=== PATIENT | male | born 1955 | race Caucasian/White ===

== ENCOUNTER 2018-09-17 11:42 | Observation (INO) | payer OTHER ==
[~2018-09-17] VITALS: Ht 154.9 cm; Wt 110.2 kg
--- NOTE | 2018-09-17 12:14 | PHYS DOC ---
Past Medical History Past Medical History: Diabetes-Type II, High Cholesterol, Hypertension Past Surgical History: Cholecystectomy, Other Additional Past Surgical Histo: BILAT ACL REPAIRS Additional Information: QUIT SMOKING AUGUST 23 Alcohol Use: None Drug Use: None Adult General Chief Complaint Chief Complaint: SHORTNESS OF BREATH HPI HPI Patient is a 63 year old male that presents with shortness of breath, chest pain that started at 10 PM last night. Describes the chest pain as pressure and states it went away last night when sleeping. He states that he is continued to be short of breath today. His states that he has been inactive over the last month as he has pending knee surgery and has been immobile. He also states that he has been nauseous and vomited 3 times last night. He states this happened after the shortness breath and chest pain. Denies any pain currently. Does have a history of diabetes, hypertension, and high cholesterol. Also has a family history of cardiac issues. Review of Systems Review of Systems Constitutional: Denies fever or chills [] Eyes: Denies change in visual acuity, redness, or eye pain [] HENT: Denies nasal congestion or sore throat [] Respiratory: Denies cough but reports shortness of breath [] Cardiovascular: Reports chest pressure last night. GI: Reports nausea, and vomiting. Denies abdominal pain, bloody stools or diarrhea [] : Denies dysuria or hematuria [] Musculoskeletal: Denies back pain or joint pain [] Integument: Denies rash or skin lesions [] Neurologic: Denies headache, focal weakness or sensory changes [] Endocrine: Denies polyuria or polydipsia [] Complete systems were reviewed and found to be within normal limits, except as documented in this note. Current Medications Current Medications Current Medications Medications (Trade) Dose Ordered Sig/[facility] Start Time Stop Time Status Last Admin Dose Admin Aspirin (Children'S Aspirin) 324 mg 1X ONCE 09/17/18 12:45 09/17/18 12:46 DC 09/17/18 13:11 324 MG Allergies Allergies Allergies Coded Allergies Type Severity Reaction Last Updated Verified No Known Drug Allergies 09/17/18 No Physical Exam Physical Exam Constitutional: Well developed, well nourished, no acute distress, non-toxic appearance. [] HENT: Normocephalic, atraumatic, bilateral external ears normal, oropharynx moist, no oral exudates, nose normal. [] Eyes: PERRLA, EOMI, conjunctiva normal, no discharge. [] Neck: Normal range of motion, no tenderness, supple, no stridor. [] Cardiovascular:Heart rate regular rhythm, no murmur [] Lungs & Thorax: Bilateral breath sounds clear to auscultation [] Abdomen: Bowel sounds normal, soft, no tenderness, no masses, no pulsatile masses. [] Skin: Warm, dry, no erythema, no rash. [] Back: No tenderness, no CVA tenderness. [] Extremities: No tenderness, no cyanosis, no clubbing, ROM intact, no edema. [] Neurologic: Alert and oriented X 3, normal motor function, normal sensory function, no focal deficits noted. [] Psychologic: Affect normal, judgement normal, mood normal. [] Current Patient Data Vital Signs Vital Signs Date Time Temp Pulse Resp B/P (MAP) Pulse Ox O2 Delivery O2 Flow Rate FiO2 09/17/18 12:45 76 22 152/94 (113) 98 Room Air 09/17/18 12:01 97.7 97.7 Lab Values Laboratory Tests Test 09/17/18 12:00 White Blood Count 9.2 x10^3/uL (4.0-11.0) Red Blood Count 4.87 x10^6/uL (4.30-5.70) Hemoglobin 15.2 g/dL (13.0-17.5) Hematocrit 43.7 % (39.0-53.0) Mean Corpuscular Volume 90 fL (79-100) Mean Corpuscular Hemoglobin 31 pg (25-35) Mean Corpuscular Hemoglobin Concent 35 g/dL (31-37) Red Cell Distribution Width 13.2 % (11.5-14.5) Platelet Count 175 x10^3/uL (140-400) Neutrophils (%) (Auto) 82 % (31-73) H Lymphocytes (%) (Auto) 14 % (24-48) L Monocytes (%) (Auto) 3 % (0-9) Eosinophils (%) (Auto) 0 % (0-3) Basophils (%) (Auto) 1 % (0-3) Neutrophils # (Auto) 7.5 x10^3/uL (1.8-7.7) Lymphocytes # (Auto) 1.3 x10^3/uL (1.0-4.8) Monocytes # (Auto) 0.3 x10^3/uL (0.0-1.1) Eosinophils # (Auto) 0.0 x10^3/uL (0.0-0.7) Basophils # (Auto) 0.1 x10^3/uL (0.0-0.2) Prothrombin Time 13.0 SEC (11.7-14.0) Prothrombin Time INR 1.0 (0.8-1.1) PTT 27 SEC (24-38) D-Dimer (Yelena) 0.43 ug/mlFEU (0.00-0.50) Sodium Level 140 mmol/L (136-145) Potassium Level 4.1 mmol/L (3.5-5.1) Chloride Level 102 mmol/L (98-107) Carbon Dioxide Level 25 mmol/L (21-32) Anion Gap 13 (6-14) Blood Urea Nitrogen 17 mg/dL (8-26) Creatinine 0.9 mg/dL (0.7-1.3) Estimated GFR (Cockcroft-Gault) 85.8 BUN/Creatinine Ratio 19 (6-20) Glucose Level 177 mg/dL (70-99) H Calcium Level 9.4 mg/dL (8.5-10.1) Total Bilirubin 0.8 mg/dL (0.2-1.0) Aspartate Amino Transferase (AST) 18 U/L (15-37) Alanine Aminotransferase (ALT) 35 U/L (16-63) Alkaline Phosphatase 60 U/L (46-116) Troponin I Quantitative < 0.017 ng/mL (0.000-0.055) HG-Orp-W-Type Natriuretic Peptide 136 pg/mL (0-124) H Total Protein 7.0 g/dL (6.4-8.2) Albumin 3.8 g/dL (3.4-5.0) Albumin/Globulin Ratio 1.2 (1.0-1.7) Laboratory Tests 09/17/18 12:00 Laboratory Tests 09/17/18 12:00 EKG EKG EKG interpreted by Dr. Mcconnell NO STEMI, Sinus rate of 81.[] Radiology/Procedures Radiology/Procedures [] Course & Med Decision Making Course & Med Decision Making Pertinent Labs and Imaging studies reviewed. (See chart for details) Will get EKG, labs, and chest x-ray. Will evaluate for PE via D-dimer. Imaging, EKG, and Labs are unremarkable but HEART score is 5. Will admit to Dr. Velasquez ([id number]) for further workup. Jarod Disclaimer Jarod Disclaimer This electronic medical record was generated, in whole or in part, using a voice recognition dictation system. Departure Departure Impression: Primary Impression: Chest pain Additional Impression: Shortness of breath at rest Disposition: ADMITTED INPATIENT Admitting Physician: CÉSAR Condition: STABLE Referrals: COLT SANTIAGO MD (PCP) The HEART Score for CP Pts HEART Score for Chest Pain: HEART Score for Chest Pain Response (Comments) Value History Highly Suspicious 2 ECG Normal 0 Age >45 - < 65 1 Risk Factors >3 Risk Factors or Hx CAD 2 Troponin < Normal Limit 0 Total 5 Risk Factors: Risk Factors: DM, Current or recent (<one month) smoker, HTN, HLP, family history of CAD, obesity. Risk Scores: Score 0 - 3: 2.5% MACE over next 6 weeks - Discharge Home Score 4 - 6: 20.3% MACE over next 6 weeks - Admit for Clinical Observation Score 7 - 10: 72.7% MACE over next 6 weeks - Early Invasive Strategies Problem Qualifiers Primary Impression: Chest pain Chest pain type: unspecified Qualified Codes: R07.9 - Chest pain, unspecified GUERO MOSS APRN Sep 17, 2018 12:14
[2018-09-17 12:19] LABS: BASO # 0.1 x10^3/uL (0.0-0.2); BASO % 1 % (0-3); EOS % 0 % (0-3); HEMATOCRIT 43.7 % (39.0-53.0); HEMOGLOBIN 15.2 g/dL (13.0-17.5); LYMPH # 1.3 x10^3/uL (1.0-4.8); LYMPH % 14 % (24-48); MEAN CORPUSCULAR HEMOGLOBIN 31 pg (25-35); MEAN CORPUSCULAR HGB CONC 35 g/dL (31-37); MEAN CORPUSCULAR VOLUME 90 fL (79-100); MONO # 0.3 x10^3/uL (0.0-1.1); MONO % 3 % (0-9); NEUT # 7.5 x10^3/uL (1.8-7.7); NEUT % 82 % (31-73); PLATELET COUNT 175 x10^3/uL (140-400); RED BLOOD COUNT 4.87 x10^6/uL (4.30-5.70); RED CELL DISTRIBUTION WIDTH 13.2 % (11.5-14.5); WHITE BLOOD COUNT 9.2 x10^3/uL (4.0-11.0)
[2018-09-17 12:29] LABS: CALCIUM 9.4 mg/dL (8.5-10.1); CREATININE 0.9 mg/dL (0.7-1.3); D-DIMER 0.43 ug/mlFEU (0.00-0.50); GFR 85.8; POTASSIUM 4.1 mmol/L (3.5-5.1)
--- NOTE | 2018-09-17 12:32 | RAD ---
PA and lateral chest. HISTORY: Short of breath, chest pain PA and lateral views were taken of the chest. Lungs are free of confluent infiltrates. Heart is normal in size. The aorta is mildly tortuous. There is no pleural effusion. IMPRESSION: 1. No acute chest disease. Electronically signed by: Prosper Chance MD (09/17/2018 12:29 PM) [facility]
[2018-09-17 12:35] LABS: ALBUMIN 3.8 g/dL (3.4-5.0); ALBUMIN/GLOBULIN RATIO 1.2 (1.0-1.7); TOTAL BILIRUBIN 0.8 mg/dL (0.2-1.0)
[2018-09-17] MEDS ORDERED: ASPIRIN CHEWABLE 81 MG TABLET. PO ONE (12:45)
[2018-09-17] MEDS ORDERED: ONDANSETRON PF 4 MG/2 ML VIAL. IV PRN (13:15)
[2018-09-17] MEDS ORDERED: NITROGLYCERIN SUBLINGUAL 0.4 MG BOTTLE OF 25. SL PRN (13:15)
[2018-09-17] MEDS ORDERED: MORPHINE SULFATE 2 MG/ML VIAL. IV PRN ×2 (13:15→20:00)
--- NOTE | 2018-09-17 14:10 | NUR ---
Received report from Yocasta AMARO in ER for this patient. Being brought up by Jose Martin DE LA CRUZ
--- NOTE | 2018-09-17 15:10 | HP ---
ADMIT DATE: CHIEF COMPLAINT: Chest pain. HISTORY OF PRESENT ILLNESS: The patient is a pleasant middle-aged male who quit smoking just a couple of months ago. He smokes heavily. He has hypertension, hyperlipidemia. His father had heart attacks. He also has diabetes. Basically presents with chest pain that is pressure like in sensation. He has associated shortness of breath. His states he was extremely short of breath, using accessory muscles of breathing. I discussed the case with ER physician. We are going to admit the patient and consult Cardiology. We are concerned he could have acute coronary event. PAST MEDICAL HISTORY: Tobacco abuse, diabetes, hypertension, hyperlipidemia, knee pain with degenerative joint disease of the knees and he is pending a knee replacement on 10/18. ALLERGIES: None. FAMILY HISTORY: Diabetes and hypertension. SOCIAL HISTORY: He quit smoking 2 months ago on 08/23. He is , has children. Retired. 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 MEDICATIONS: Reviewed, please refer to the MRAD. REVIEW OF SYSTEMS: GENERAL: No history of weight change, weakness or fevers. SKIN: No bruising, hair changes or rashes. EYES: No blurred, double or loss of vision. NOSE AND THROAT: No history of nosebleeds, hoarseness or sore throat. HEART: He complains of chest pain. LUNGS: Denies cough, hemoptysis, wheezing or shortness of breath. GASTROINTESTINAL: He complains of abdominal pain. GENITOURINARY: No history of frequency, urgency, hesitancy or nocturia. NEUROLOGIC: Denies history of numbness, tingling, tremor or weakness. PSYCHIATRIC: No history of panic, anxiety or depression. ENDOCRINE: No history of heat or cold intolerance, polyuria or polydipsia. EXTREMITIES: Denies muscle weakness, joint pain, pain on walking or stiffness. PHYSICAL EXAMINATION: VITALS: Within normal limits and are stable. GENERAL: No apparent distress. Alert and oriented. HEENT: Head is normocephalic, atraumatic, pupils were equally round and reactive to light and accommodation. NECK: Supple, no JVD, no thyromegaly was noted. LUNGS: Clear to auscultation in all lung day without rhonchi or wheezing. HEART: RRR, S1, S2 present. Peripheral pulses intact, no obvious murmurs were noted. ABDOMEN: Soft, nontender. Positive bowel sounds no organomegaly, normal bowel sounds. EXTREMITIES: Without any cyanosis, clubbing, or edema. Pedal pulses intact, Homans sign is negative. NEUROLOGIC: Normal speech, normal tone. A and O x3, moves all extremities, no obvious focal deficits. PSYCHIATRIC: Normal affect, normal mood. Stable. SKIN: No ulcerations or rashes, good skin turgor, no jaundice. VASCULAR: Good capillary refill, neurovascular bundle appears to be intact. LABORATORY DATA: First troponin is 0. ASSESSMENT AND PLAN: Chest pain, rule out coronary disease. The patient has been admitted. We will check serial enzymes, serial EKGs. Consult Cardiology, cardiac monitoring, home meds, PT, OT, frequent labs. DVT prophylaxis. Full code. PROGNOSIS: Guarded. ERICH RODRIGUEZ DO DR: JORI/nicanor JOB#: [id number] / [id number]
[2018-09-17 15:51] VITALS: BP 165/97
--- NOTE | 2018-09-17 16:14 | EKG ---
[facility] [address] [place] [address] Test Date: 2018-09-17 Test Time: 11:50:11 Pat Name: DAYAMI BANUELOS Department: Room: Gender: M Chaperone: : 1955 Requested By: GUERO MOSS Order Number: [id number] Reading MD: Measurements Intervals Sebastian Rate: 81 P: 30 ID: [id number] QRS: -8 QRSD: 94 T: 14 QT: 366 QTc: 426 Interpretive Statements SINUS RHYTHM LEFTWARD AXIS OTHERWISE NORMAL ECG RI6.01 No previous ECG available for comparison
[2018-09-17] MEDS ORDERED: ZOLP10TA4 PO (17:54)
[2018-09-17] MEDS ORDERED: GLIM2TAB2 PO (17:54)
[2018-09-17] MEDS ORDERED: GABA600T7 PO (17:54)
[2018-09-17] MEDS ORDERED: METF750T2 PO (17:54)
[2018-09-17] MEDS ORDERED: LOSA100T14 PO (17:54)
[2018-09-17] MEDS ORDERED: OXYC5CAP PO (17:54)
[2018-09-17 19:00] VITALS: BP 154/96
[2018-09-17] MEDS ORDERED: ZOLPIDEM 5 MG TABLET. PO PRN (19:30)
[2018-09-17 20:46] VITALS: BP 139/68
[2018-09-17] MEDS: GABAPENTIN 300 MG CAPSULE. PO SCH (20:57)
[2018-09-17 22:20] VITALS: BP 152/87
[2018-09-17] MEDS: oxyCODONE IR 5 MG TABLET PO PRN (22:21)
[2018-09-18 02:09] VITALS: BP 132/78
[2018-09-18 07:45] VITALS: BP 138/92
[2018-09-18] MEDS ORDERED: metFORMIN XR 500 MG TAB.ER.24H PO SCH (08:00)
[2018-09-18] MEDS: GABAPENTIN 300 MG CAPSULE. PO SCH (08:17)
[2018-09-18] MEDS ORDERED: LOSARTAN POTASSIUM 50 MG TABLET. PO SCH (09:00)
[2018-09-18] MEDS ORDERED: GLIMEPIRIDE 2 MG TABLET. PO SCH (09:00)
[2018-09-18] MEDS: oxyCODONE IR 5 MG TABLET PO PRN ×2 (09:24→14:02)
[2018-09-18] MEDS ORDERED: ACETAMINOPHEN 500 MG TABLET PO PRN (09:30)
[2018-09-18] MEDS ORDERED: DEXTROSE 50% 25 GM / 50ML DISP.SYRIN. IV PRN (09:30)
[2018-09-18] MEDS ORDERED: NICOTINE 21MG PATCH. TD PRN (09:45)
[2018-09-18] MEDS ORDERED: ONDANSETRON PF 4 MG/2 ML VIAL. IV PRN (09:45)
--- NOTE | 2018-09-18 10:06 | PDOC2 ---
JUANA MIGUEL ROQUE 09/18/18 1006: CARDIAC CONSULT DATE OF CONSULT Date of Consult DATE: 09/18/18 TIME: 10:01 REASON FOR CONSULT Reason for Consult: Chest pain Shortness of breath REFERRING PHYSICIAN Referring Physician: Joey Le APRN SOURCE Source: Chart review, Patient HISTORY OF PRESENT ILLNESS HISTORY OF PRESENT ILLNESS This is a 63 yo male who presented secondary to shortness of breath. Patient reports he started having difficult breathing around 10pm Tuesday night. Had brief pressure across his central chest. Associated with nausea. No dizziness, diaphoresis, or palpitations. Non-radiating. No specific worsening or relieving factors. Resolved without intervention. SOA persisted overnight so he came to the ED Tuesday for further evaluation and treatment. No LE edema or recent illness/fevers. Denies any recent FREIRE or fatigue. Had not had any further shortness of breath and chest pain since arrival. PAST MEDICAL HISTORY Cardiovascular: HTN, Hyperlipidemia Musculoskeletal: Osteoarthritis Endocrine: Diabetes PAST SURGICAL HISTORY Past Surgical History: Cholecystectomy, Other (bilateral knee surgery) FAMILY HISTORY Family History: Coronary Artery Disease (father with CABG in his 70's ), Diabetes, Hypertension SOCIAL HISTORY Smoke: Quit (1 month ago) ALCOHOL: none Drugs: None Lives: with Family CURRENT MEDICATIONS CURRENT MEDICATIONS Current Medications Medications (Trade) Dose Ordered Sig/Arron Route PRN Reason Start Time Stop Time Status Last Admin Dose Admin Aspirin (Children'S Aspirin) 324 mg 1X ONCE PO 09/17/18 12:45 09/17/18 12:46 DC 09/17/18 13:11 Ondansetron HCl (Zofran) 4 mg PRN Q8HRS PRN IV NAUSEA/VOMITING 09/17/18 13:15 09/18/18 09:31 DC 09/17/18 14:59 Morphine Sulfate (Morphine Sulfate) 2 mg PRN Q2HR PRN IV PAIN 09/17/18 13:15 09/18/18 13:14 09/17/18 15:00 Glimepiride (Amaryl) 2 mg DAILY PO 09/18/18 09:00 09/18/18 08:17 Gabapentin (Neurontin) 600 mg BID PO 09/17/18 21:00 09/18/18 08:17 Losartan Potassium (Cozaar) 100 mg DAILY PO 09/18/18 09:00 09/18/18 08:18 Metformin HCl (Glucophage Xr) 750 mg DAILYWBKFT PO 09/18/18 08:00 09/18/18 08:17 Oxycodone HCl (Roxicodone) 5 mg PRN Q4HRS PRN PO PAIN 09/17/18 19:30 09/18/18 09:24 Zolpidem Tartrate (Ambien) 5 mg PRN QHS PRN PO INSOMNIA 09/17/18 19:30 09/17/18 20:57 ALLERGIES ALLERGIES: Coded Allergies: No Known Drug Allergies (Unverified , 09/17/18) ROS Review of System 14 point ROS conducted with pertinent positives noted above in HPI. PHYSICAL EXAM General: Alert, Oriented X3, Cooperative, No acute distress HEENT: Atraumatic, Mucous membr. moist/pink Lungs: Clear to auscultation, Normal air movement Heart: Regular rate, Normal S1, Normal S2 Abdomen: Soft, No tenderness Extremities: No edema, Normal pulses Skin: No significant lesion Neuro: Normal speech, Sensation intact VITALS/I&O VITALS/I&O: Vital Signs Date Time Temp Pulse Resp B/P (MAP) Pulse Ox O2 Delivery O2 Flow Rate FiO2 09/18/18 08:18 78 138/92 09/18/18 07:45 97.6 20 95 Room Air 97.6 09/17/18 20:46 2.0 I & O 09/17/18 09/17/18 09/18/18 14:59 22:59 06:59 Intake Total 500 ml 350 ml Balance 500 ml 350 ml LABS Lab: Laboratory Tests Test 09/17/18 12:00 09/17/18 16:05 09/17/18 16:45 09/17/18 19:10 White Blood Count 9.2 x10^3/uL (4.0-11.0) Red Blood Count 4.87 x10^6/uL (4.30-5.70) Hemoglobin 15.2 g/dL (13.0-17.5) Hematocrit 43.7 % (39.0-53.0) Mean Corpuscular Volume 90 fL (79-100) Mean Corpuscular Hemoglobin 31 pg (25-35) Mean Corpuscular Hemoglobin Concent 35 g/dL (31-37) Red Cell Distribution Width 13.2 % (11.5-14.5) Platelet Count 175 x10^3/uL (140-400) Neutrophils (%) (Auto) 82 % (31-73) H Lymphocytes (%) (Auto) 14 % (24-48) L Monocytes (%) (Auto) 3 % (0-9) Eosinophils (%) (Auto) 0 % (0-3) Basophils (%) (Auto) 1 % (0-3) Neutrophils # (Auto) 7.5 x10^3/uL (1.8-7.7) Lymphocytes # (Auto) 1.3 x10^3/uL (1.0-4.8) Monocytes # (Auto) 0.3 x10^3/uL (0.0-1.1) Eosinophils # (Auto) 0.0 x10^3/uL (0.0-0.7) Basophils # (Auto) 0.1 x10^3/uL (0.0-0.2) Prothrombin Time 13.0 SEC (11.7-14.0) Prothrombin Time INR 1.0 (0.8-1.1) PTT 27 SEC (24-38) D-Dimer (Yelena) 0.43 ug/mlFEU (0.00-0.50) Sodium Level 140 mmol/L (136-145) Potassium Level 4.1 mmol/L (3.5-5.1) Chloride Level 102 mmol/L (98-107) Carbon Dioxide Level 25 mmol/L (21-32) Anion Gap 13 (6-14) Blood Urea Nitrogen 17 mg/dL (8-26) Creatinine 0.9 mg/dL (0.7-1.3) Estimated GFR (Cockcroft-Gault) 85.8 BUN/Creatinine Ratio 19 (6-20) Glucose Level 177 mg/dL (70-99) H Calcium Level 9.4 mg/dL (8.5-10.1) Total Bilirubin 0.8 mg/dL (0.2-1.0) Aspartate Amino Transferase (AST) 18 U/L (15-37) Alanine Aminotransferase (ALT) 35 U/L (16-63) Alkaline Phosphatase 60 U/L (46-116) Troponin I Quantitative < 0.017 ng/mL (0.000-0.055) < 0.017 ng/mL (0.000-0.055) < 0.017 ng/mL (0.000-0.055) BU-Jms-L-Type Natriuretic Peptide 136 pg/mL (0-124) H Total Protein 7.0 g/dL (6.4-8.2) Albumin 3.8 g/dL (3.4-5.0) Albumin/Globulin Ratio 1.2 (1.0-1.7) Glucose (Fingerstick) 124 mg/dL (70-99) H Test 09/17/18 19:59 09/18/18 08:08 Glucose (Fingerstick) 136 mg/dL (70-99) H 126 mg/dL (70-99) H Laboratory Tests 09/17/18 12:00 Laboratory Tests 09/17/18 12:00 ASSESSMENT/PLAN ASSESSMENT/PLAN 1. Dyspnea; CXR without pulm edema. BNP only 136. Doubt CHF. Possible anxiety component, but cannot rule out CAD component 2. Chest pain, mixed feature. AMI ruled out. EKG without significant acute changes 3. Hypertension; now controlled 4. Hyperlipidemia 5. Diabetes, II; as per PCP 6. Tobaccoism; recently quit Recommendations Echo to assess LV systolic function ASA Lipid panel- add statin Recommend further ischemic workup given presenting symptoms and significant risk factors. Patient would prefer to do this as an outpatient unless echo significantly abnormal. EDI FONTENOT MD 09/18/18 1644: CARDIAC CONSULT ASSESSMENT/PLAN ASSESSMENT/PLAN Pt. seen and examined. 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 He has plans for a knee surgery in the next couple weeks. No indication to delay his knee surgery. Consider stress testing afterwards depending on symptoms. Would be considered low risk for knee surgery. Thanks JUANA MIGUEL APRN Sep 18, 2018 10:06 EDI FONTENOT MD Sep 18, 2018 16:44
[2018-09-18] MEDS ORDERED: GABA600T7 PO (10:13)
[2018-09-18] MEDS ORDERED: ASPIRIN ENTERIC COATED 81 MG TABLET.DR. PO SCH (10:30)
[2018-09-18 10:35] LABS: CHOLESTEROL/HDL RATIO 4.1
[2018-09-18 11:30] VITALS: BP 143/77
[2018-09-18] MEDS ORDERED: Nicotine 14MG TD (11:48)
[2018-09-18] MEDS ORDERED: ALPR0.25 PO (11:48)
[2018-09-18] MEDS ORDERED: ATOR20TA58 PO (11:48)
[2018-09-18] MEDS ORDERED: ASPI-612 PO (11:48)
--- NOTE | 2018-09-18 11:51 | PDOC3 ---
Discharge Summary Visit Information Date of Admission: Sep 17, 2018 Date of Discharge: Sep 18, 2018 Admitting Diagnosis Comment: Anxiety NOS Chest pain, noncardiac LIKELY anxiety Hypertension DM otherwise controlled Final Diagnosis Problems Medical Problems: (1) Chest pain Status: Acute (2) Shortness of breath at rest Status: Acute Brief Hospital Course Allergies Allergies Coded Allergies Type Severity Reaction Last Updated Verified No Known Drug Allergies 09/17/18 No Vital Signs Vital Signs Date Time Temp Pulse Resp B/P (MAP) Pulse Ox O2 Delivery O2 Flow Rate FiO2 09/18/18 08:18 78 138/92 09/18/18 08:00 Room Air 09/18/18 07:45 97.6 20 95 97.6 09/17/18 20:46 2.0 Lab Results Laboratory Tests Test 09/17/18 12:00 09/17/18 16:05 09/17/18 16:45 09/17/18 19:10 White Blood Count 9.2 x10^3/uL (4.0-11.0) Red Blood Count 4.87 x10^6/uL (4.30-5.70) Hemoglobin 15.2 g/dL (13.0-17.5) Hematocrit 43.7 % (39.0-53.0) Mean Corpuscular Volume 90 fL (79-100) Mean Corpuscular Hemoglobin 31 pg (25-35) Mean Corpuscular Hemoglobin Concent 35 g/dL (31-37) Red Cell Distribution Width 13.2 % (11.5-14.5) Platelet Count 175 x10^3/uL (140-400) Neutrophils (%) (Auto) 82 % (31-73) Lymphocytes (%) (Auto) 14 % (24-48) Monocytes (%) (Auto) 3 % (0-9) Eosinophils (%) (Auto) 0 % (0-3) Basophils (%) (Auto) 1 % (0-3) Neutrophils # (Auto) 7.5 x10^3/uL (1.8-7.7) Lymphocytes # (Auto) 1.3 x10^3/uL (1.0-4.8) Monocytes # (Auto) 0.3 x10^3/uL (0.0-1.1) Eosinophils # (Auto) 0.0 x10^3/uL (0.0-0.7) Basophils # (Auto) 0.1 x10^3/uL (0.0-0.2) Prothrombin Time 13.0 SEC (11.7-14.0) Prothromb Time International Ratio 1.0 (0.8-1.1) Activated Partial Thromboplast Time 27 SEC (24-38) D-Dimer (Yelena) 0.43 ug/mlFEU (0.00-0.50) Sodium Level 140 mmol/L (136-145) Potassium Level 4.1 mmol/L (3.5-5.1) Chloride Level 102 mmol/L (98-107) Carbon Dioxide Level 25 mmol/L (21-32) Anion Gap 13 (6-14) Blood Urea Nitrogen 17 mg/dL (8-26) Creatinine 0.9 mg/dL (0.7-1.3) Estimated GFR (Cockcroft-Gault) 85.8 BUN/Creatinine Ratio 19 (6-20) Glucose Level 177 mg/dL (70-99) Calcium Level 9.4 mg/dL (8.5-10.1) Total Bilirubin 0.8 mg/dL (0.2-1.0) Aspartate Amino Transf (AST/SGOT) 18 U/L (15-37) Alanine Aminotransferase (ALT/SGPT) 35 U/L (16-63) Alkaline Phosphatase 60 U/L (46-116) Troponin I Quantitative < 0.017 ng/mL (0.000-0.055) < 0.017 ng/mL (0.000-0.055) < 0.017 ng/mL (0.000-0.055) PV-Jic-J-Type Natriuretic Peptide 136 pg/mL (0-124) Total Protein 7.0 g/dL (6.4-8.2) Albumin 3.8 g/dL (3.4-5.0) Albumin/Globulin Ratio 1.2 (1.0-1.7) Triglycerides Level 160 mg/dL (0-150) Cholesterol Level 183 mg/dL (0-200) LDL Cholesterol, Calculated 106 mg/dL (0-100) VLDL Cholesterol, Calculated 32 mg/dL (0-40) Non-HDL Cholesterol Calculated 138 mg/dL (0-129) HDL Cholesterol 45 mg/dL (40-60) Cholesterol/HDL Ratio 4.1 Glucose (Fingerstick) 124 mg/dL (70-99) Test 09/17/18 19:59 09/18/18 08:08 Glucose (Fingerstick) 136 mg/dL (70-99) 126 mg/dL (70-99) Laboratory Tests Test 09/17/18 12:00 09/17/18 16:05 09/17/18 16:45 09/17/18 19:10 White Blood Count 9.2 x10^3/uL (4.0-11.0) Red Blood Count 4.87 x10^6/uL (4.30-5.70) Hemoglobin 15.2 g/dL (13.0-17.5) Hematocrit 43.7 % (39.0-53.0) Mean Corpuscular Volume 90 fL (79-100) Mean Corpuscular Hemoglobin 31 pg (25-35) Mean Corpuscular Hemoglobin Concent 35 g/dL (31-37) Red Cell Distribution Width 13.2 % (11.5-14.5) Platelet Count 175 x10^3/uL (140-400) Neutrophils (%) (Auto) 82 % (31-73) Lymphocytes (%) (Auto) 14 % (24-48) Monocytes (%) (Auto) 3 % (0-9) Eosinophils (%) (Auto) 0 % (0-3) Basophils (%) (Auto) 1 % (0-3) Neutrophils # (Auto) 7.5 x10^3/uL (1.8-7.7) Lymphocytes # (Auto) 1.3 x10^3/uL (1.0-4.8) Monocytes # (Auto) 0.3 x10^3/uL (0.0-1.1) Eosinophils # (Auto) 0.0 x10^3/uL (0.0-0.7) Basophils # (Auto) 0.1 x10^3/uL (0.0-0.2) Prothrombin Time 13.0 SEC (11.7-14.0) Prothromb Time International Ratio 1.0 (0.8-1.1) Activated Partial Thromboplast Time 27 SEC (24-38) D-Dimer (Yelena) 0.43 ug/mlFEU (0.00-0.50) Sodium Level 140 mmol/L (136-145) Potassium Level 4.1 mmol/L (3.5-5.1) Chloride Level 102 mmol/L (98-107) Carbon Dioxide Level 25 mmol/L (21-32) Anion Gap 13 (6-14) Blood Urea Nitrogen 17 mg/dL (8-26) Creatinine 0.9 mg/dL (0.7-1.3) Estimated GFR (Cockcroft-Gault) 85.8 BUN/Creatinine Ratio 19 (6-20) Glucose Level 177 mg/dL (70-99) Calcium Level 9.4 mg/dL (8.5-10.1) Total Bilirubin 0.8 mg/dL (0.2-1.0) Aspartate Amino Transf (AST/SGOT) 18 U/L (15-37) Alanine Aminotransferase (ALT/SGPT) 35 U/L (16-63) Alkaline Phosphatase 60 U/L (46-116) Troponin I Quantitative < 0.017 ng/mL (0.000-0.055) < 0.017 ng/mL (0.000-0.055) < 0.017 ng/mL (0.000-0.055) UG-Bby-J-Type Natriuretic Peptide 136 pg/mL (0-124) Total Protein 7.0 g/dL (6.4-8.2) Albumin 3.8 g/dL (3.4-5.0) Albumin/Globulin Ratio 1.2 (1.0-1.7) Triglycerides Level 160 mg/dL (0-150) Cholesterol Level 183 mg/dL (0-200) LDL Cholesterol, Calculated 106 mg/dL (0-100) VLDL Cholesterol, Calculated 32 mg/dL (0-40) Non-HDL Cholesterol Calculated 138 mg/dL (0-129) HDL Cholesterol 45 mg/dL (40-60) Cholesterol/HDL Ratio 4.1 Glucose (Fingerstick) 124 mg/dL (70-99) Test 09/17/18 19:59 09/18/18 08:08 Glucose (Fingerstick) 136 mg/dL (70-99) 126 mg/dL (70-99) Brief Hospital Course Mr. Leonardo is a 63 old white male who has been smoking for 43 years comes in because of chest pain and S OA but with negative EKG, negative troponin, and negative chest x-ray. CArds consulted and echo is pending He tells me has been smoking for 43 years - could be anxiety. We will try low- dose Xanax and I think this is anxiety NOS. He asks questions about him missing hypertensive and diabetes meds for 2 or 3 days but both blood pressure and blood sugar fine without meds I did educate him and defer to the PCP - sounds like he could be off of meds if this is the case consistently Discussed with at bedside Observation status Consults performed cardiology Procedures performed echo Discharge disposition home independent with Discharge Information Condition at Discharge: Improved, Stable Follow Up: Weeks (pcp re bp and oHA) Disposition/Orders: D/C to Home Scheduled Alprazolam (Xanax) 0.25 Mg Tablet, 1 TAB PO TID for anxiety, #60 Prescribed by: JAIMIE KRUGER on 09/18/18 1148 Aspirin (Aspirin Ec) 81 Mg Tablet.dr, 81 MG PO DAILYWBKFT for prevention, #60 Prescribed by: JAIMIE KRUGER on 09/18/18 1148 Atorvastatin Calcium (Atorvastatin Calcium) 20 Mg Tablet, 20 MG PO QHS for lipids, #60 Prescribed by: JAIMIE KRUGER on 09/18/18 1148 Gabapentin (Gabapentin) 600 Mg Tablet, 300 MG PO BID for NEUROGENIC PAIN, (Reported) Entered as Reported by: JOHNNY YE on 09/18/18 1013 Last Taken: Unknown Dose on Unknown Date & Time Last Action: Converted on 09/18/181013 by JOHNNY YE Glimepiride (Glimepiride) 2 Mg Tablet, 1 TAB PO DAILY for diabetes, #30 Ref 5 (Reported) Entered as Reported by: NICOLÁS ISSA RN on 09/17/181753 Last Taken: Unknown Dose on 09/16/18 Last Action: Continued on 09/17/181919 by NICOLÁS ISSA RN Losartan Potassium (Losartan Potassium) 100 Mg Tablet, 100 MG PO DAILY for HYPERTENSION, (Reported) Entered as Reported by: NICOLÁS ISSA RN on 09/17/181753 Last Taken: Unknown Dose on 09/16/18 Last Action: Converted on 09/17/181919 by NICOLÁS ISSA RN Metformin Hcl (Metformin Hcl Er) 750 Mg Tab.er.24h, 750 MG PO DAILYWBKFT for ANTI-DIABETIC, Ref 0 (Reported) Entered as Reported by: NICOLÁS ISSA RN on 09/17/181753 Last Taken: Unknown Dose on 09/16/18 Last Action: Converted on 09/17/181919 by NICOLÁS ISSA RN [Nicotine 14MG] 1 PATCH PATCH, 1 PATCH TD DAILY, #10 Prescribed by: JAIMIE KRUGER on 09/18/18 1148 Scheduled PRN Oxycodone Hcl (Oxycodone Hcl) 5 Mg Capsule, 5 MG PO PRN Q4HRS PRN for PAIN, Ref 0 (Reported) Entered as Reported by: NICOLÁS ISSA RN on 09/17/181753 Last Taken: Unknown Dose on 09/16/18 Last Action: Converted on 09/17/181919 by NICOLÁS ISSA RN Zolpidem Tartrate (Zolpidem Tartrate) 10 Mg Tablet, 10 MG PO PRN QHS PRN for INSOMNIA, Ref 0 (Reported) Entered as Reported by: NICOLÁS ISSA RN on 09/17/181753 Last Taken: Unknown Dose on 09/16/18 Last Action: Converted on 09/17/181919 by NICOLÁS ISSA RN Discontinued Medications Gabapentin (Gabapentin) 600 Mg Tablet, 300 MG PO BID for NEUROGENIC PAIN, (Reported) Entered as Reported by: NICOLÁS ISSA RN on 09/17/181753 Last Taken: Unknown Dose on 09/16/18 Last Action: Discontinued on 09/18/18 1013 by JAIMIE MARTINI MD Sep 18, 2018 11:51
[2018-09-18] MEDS ORDERED: INSULIN LISPRO 300 UNITS/3 ML INSULN.PEN. SQ SCH (12:00)
--- NOTE | 2018-09-18 12:22 | CARD ---
MR#: [id number] Date of Study: 09/18/2018 Ordering Physician: JUANA MIGUEL, Referring Physician: ERICH RODRIGUEZ Tech: Leslie Teran RDCS APPROVED REPORT EXAM: Two-dimensional and M-mode echocardiogram with Doppler and color Doppler. Other Information Quality : Good INDICATION Dyspnea Chest Pain 2D DIMENSIONS RVDd3.4 (2.9-3.5cm)Left Atrium(2D)3.8 (1.6-4.0cm) IVSd0.9 (0.7-1.1cm)Aortic Root(2D)3.6 (2.0-3.7cm) LVDd6.3 (3.9-5.9cm)LVOT Diameter2.3 (1.8-2.4cm) PWd0.6 (0.7-1.1cm)LVDs4.3 (2.5-4.0cm) FS (%) 31.9 %SV119.7 ml LVEF(%)58.9 (>50%) Aortic Valve AoV Peak Esteban.135.7cm/sAoV VTI27.4cm AO Peak GR.7.4mmHgLVOT Peak Esteban.130.5cm/s LVOT VTI 25.12cmAO Mean GR.4mmHg ELEUTERIO (VMAX)4.22jy5TOO (VTI)3.92cm2 Mitral Valve MV E Hnlncmyp56.4cm/sMV DECEL FJTZ077pl MV A Bgajgrqf00.6cm/sMV COB89sg E/A Ratio0.9MVA (PHT)2.64cm2 TDI E/Lateral E'8.7E/Medial E'9.9 Tricuspid Valve TR P. Drtkpsyf615qu/sRAP BJPQRMNV6qiYf TR Peak Gr.05zsSsFFXN62rwQx Pulmonary Vein S1 Sodagxdl92.7cm/sD2 Oeslxohj46.9cm/s LEFT VENTRICLE The Left Ventricle is mildly dilated. There is normal left ventricular wall thickness. The left ventr icular systolic function is normal. The Ejection Fraction is 50-55%. There is normal LV segmental wal l motion. Transmitral Doppler flow pattern is Grade I-abnormal relaxation pattern. RIGHT VENTRICLE The right ventricle is normal size. The right ventricular systolic function is normal. ATRIA The left atrium size is normal. The right atrium size is normal. The interatrial septum is intact wit h no evidence for an atrial septal defect or patent foramen ovale as noted on 2-D or Doppler imaging. AORTIC VALVE The aortic valve is calcified but opens well. Doppler and Color Flow revealed no significant aortic r egurgitation. There is no significant aortic valvular stenosis. MITRAL VALVE The mitral valve is calcified but opens well. There is no evidence of mitral valve prolapse. There is no mitral valve stenosis. Doppler and Color-flow revealed trace mitral regurgitation. TRICUSPID VALVE The tricuspid valve is normal in structure and function. Doppler and Color Flow revealed trace tricus pid regurgitation. The PA pressure was estimated at 30 mmHg. There is no tricuspid valve stenosis. PULMONIC VALVE The pulmonary valve is normal in structure and function. Doppler and Color Flow revealed trace to mil d pulmonic valvular regurgitation. There is no pulmonic valvular stenosis. GREAT VESSELS The aortic root is normal in size. The ascending aorta is mildly dilated at 3.7 cm. The IVC is normal in size and collapses >50% with inspiration. PERICARDIAL EFFUSION There is no evidence of significant pericardial effusion. Critical Notification Critical Value: No <Conclusion> The Left Ventricle is mildly dilated. The left ventricular systolic function is normal. The Ejection Fraction is 50-55%. There is no significant aortic valvular stenosis. Doppler and Color Flow revealed no significant aortic regurgitation. Doppler and Color-flow revealed trace mitral regurgitation. Doppler and Color Flow revealed trace tricuspid regurgitation. The PA pressure was estimated at 30 mmHg. Doppler and Color Flow revealed trace to mild pulmonic valvular regurgitation. The ascending aorta is mildly dilated at 3.7 cm. Signed by : Iker Damon MD Electronically Approved : 09/18/2018 12:21:33
[2018-09-18] MEDS ORDERED: NICOTINE 14MG PATCH. TD SCH (12:30)
[2018-09-18] MEDS ORDERED: GABAPENTIN 300 MG CAPSULE. PO SCH (21:00)
[2018-09-18] MEDS ORDERED: ATORVASTATIN CALCIUM 20 MG TABLET PO SCH (21:00)
[2018-09-18 23:07] LABS: HEMOGLOBIN A1C 6.4 % (4.8-5.6)
== END 2018-09-18 15:20 | disposition home or self-care (01) ==
LOC: ER 11:42 → 6 SOUTH 13:11
PROVIDERS: ADMIT Internal Medicine; ATTEND Internal Medicine
DX: R07.89 Other chest pain (principal); E78.00 Pure hypercholesterolemia, unspecified; I10 Essential (primary) hypertension; F17.200 Nicotine dependence, unspecified, uncomplicated; E11.9 Type 2 diabetes mellitus without complications; E78.5 Hyperlipidemia, unspecified; R06.02 Shortness of breath; F41.9 Anxiety disorder, unspecified; Z82.49 Family history of ischemic heart disease and other diseases of the circulatory system; Z83.3 Family history of diabetes mellitus
CPT/HCPCS: 36415; 71046; 80053; 80061; 82962; 83036; 83880; 84484; 85025; 85379; 85610; 85730; 93005; 93306; 96374; 96375; 99284; G0378; J1815; J2270; J2405; G0379

== ENCOUNTER → 2018-09-22 | Outpatient (CLI) | payer OTHER ==
[2018-09-18 11:30] VITALS: BP 143/77
[~2018-09-22] MED LIST: ALPR0.25 PO; ASPI-612 PO; ASPI325T11 PO; ASPI325T8 PO; ATOR20TA58 PO; Celecoxib PO; GABA600T7 PO; GLIM2TAB3 PO; HYDR-2145 PO; LOSA100T14 PO; METF750T39 PO; Nicotine 14MG TD; OXYC1TAB15 PO; OXYC5CAP PO; ZOLP10TA4 PO
== END | disposition home or self-care (01) ==
LOC: LAB 09:45
PROVIDERS: ATTEND Orthopaedic Surgery
DX: Z71.6 Tobacco abuse counseling (principal)

== ENCOUNTER → 2018-09-25 | Outpatient (CLI) | payer OTHER ==
[2018-09-18 11:30] VITALS: BP 143/77
[~2018-09-25] MED LIST changes: +GLIM2TAB2 PO; -GLIM2TAB3 PO; +METF750T2 PO; -METF750T39 PO
[2018-09-25 10:01] LABS: BILIRUBIN,URINE NEGATIVE (NEG); CLARITY,URINE CLEAR; COLOR,URINE YELLOW; NITRITE,URINE NEGATIVE (NEG); PROTEIN,URINE NEGATIVE (NEG-TRACE)
[2018-09-25 10:51] LABS: RBC,URINE 0 /HPF (0-2); WBC,URINE 0 /HPF (0-4)
[2018-09-25 10:52] LABS: BACTERIA,URINE 0 /HPF (0-FEW); HYALINE CASTS, URINE MANY /HPF
--- NOTE | 2018-09-25 13:26 | EKG ---
[facility] [address] [place] [address] Test Date: 2018-09-25 Test Time: 13:00:32 Pat Name: DAYAMI BANUELOS Department: Room: Gender: M [employer]: : 1955 Requested By: MIGUELANGEL CASTILLO Order Number: [id number] Reading MD: Jorge Johnson Measurements Intervals Mabel Rate: 85 P: 31 MS: 188 QRS: 29 QRSD: 80 T: 31 QT: 344 QTc: 414 Interpretive Statements SINUS RHYTHM Electronically Signed On 09-27-2018 15:29:13 CDT by Jorge Johnson
== END | disposition home or self-care (01) ==
LOC: SURGPAT 13:07
PROVIDERS: ATTEND Orthopaedic Surgery
DX: Z01.818 Encounter for other preprocedural examination (principal); M17.11 Unilateral primary osteoarthritis, right knee; I10 Essential (primary) hypertension
CPT/HCPCS: 36415; 81001; 82306; 85651; 87641; 93005